=== PATIENT | female | born 1970 | race Hispanic/Latino ===

== ENCOUNTER 2024-06-22 10:12 | Inpatient (IN) | payer SELFPAY ==
[2024-06-22 20:08] LABS: Hematocrit 19.8 % (34.9-44.5); Hemoglobin 5.8 g/dL (12.0-15.5); Mean Corpuscular HGB CONC 29.3 g/dL (32.0-36.0); Mean Corpuscular Hemoglobin 26.1 pg (27.0-33.0); Mean Corpuscular Volume 89.2 fL (81.6-98.3); Mean Platelet Volume 11.4 fL (7.4-10.4); Platelet Count 223 10x3/uL (150-450); Red Blood Cell (RBC) Count 2.22 10x6/uL (3.90-5.03); White Blood Cell (WBC) Count 7.65 10x3/uL (3.5-10.5)
[2024-06-22 20:09] LABS: #Basophils 0.05 10x3/uL (0.0-0.2); #Eosinophils 0.29 10x3/uL (0.0-0.5); #Monocytes 0.56 10x3/uL (0.0-1.1); #Neutrophils 4.05 10x3/uL (1.5-8.4); %Basophils 0.7 % (0.0-2.0); %Eosinophils 3.8 % (0.0-6.0); %Monocytes 7.3 % (0.0-10.0); %Neutrophils 52.9 % (40.0-75.0)
[2024-06-22 20:38] VITALS: BMI 32.8
[2024-06-23] MEDS: Furosemide 20 MG (2 mL) VIAL SLOW IVP SCH (04:05)
[2024-06-23 09:19] LABS: #Basophils 0.05 10x3/uL (0.0-0.2); #Eosinophils 0.31 10x3/uL (0.0-0.5); #Monocytes 0.61 10x3/uL (0.0-1.1); #Neutrophils 3.87 10x3/uL (1.5-8.4); %Basophils 0.8 % (0.0-2.0); %Eosinophils 4.7 % (0.0-6.0); %Lymphocytes 26.8 % (18.0-47.0); %Monocytes 9.2 % (0.0-10.0); %Neutrophils 58.2 % (40.0-75.0); Hematocrit 29.1 % (34.9-44.5); Hemoglobin 9.1 g/dL (12.0-15.5); Mean Corpuscular HGB CONC 31.3 g/dL (32.0-36.0); Mean Corpuscular Hemoglobin 27.2 pg (27.0-33.0); Mean Corpuscular Volume 86.9 fL (81.6-98.3); Mean Platelet Volume 11.5 fL (7.4-10.4); Platelet Count 194 10x3/uL (150-450); RBC Distribution Width 19.7 % (11.5-14.5); Red Blood Cell (RBC) Count 3.35 10x6/uL (3.90-5.03); White Blood Cell (WBC) Count 6.64 10x3/uL (3.5-10.5)
[2024-06-23 09:30] LABS: INR-International Normal Ratio 0.9; PTT 22.7 sec (22.0-33.0); Prothrombin Time 10.3 sec (9.5-12.1)
[2024-06-23 14:46] LABS: Anion Gap 10 mmol/L (10-20); BUN (Urea Nitrogen) 12 mg/dL (9.8-20.1); Calc. Creatinine Clearance 126 mL/min (70-130); Calcium 8.9 mg/dL (7.8-10.44); Carbon Dioxide 25 mmol/L (22-29); Chloride 105 mmol/L (98-107); Estimated GFR 88; Glucose 87 mg/dL (70-105); Potassium 3.9 mmol/L (3.5-5.1); Sodium 136 mmol/L (136-145)
[2024-06-23] MEDS ORDERED: Bupivacaine HCl 0.5%/Epinephrine 1:200,000/PF 30 ml Vial ONE (15:19)
[2024-06-23] MEDS ORDERED: Methylene Blue 50 MG/10 ML AMPUL ONE (15:19)
[2024-06-23] MEDS ORDERED: Fentanyl 100 MCG/2 ML VIAL ONE ×2 (15:47→18:40)
[2024-06-23] MEDS ORDERED: PROPOFOL 40 ML ONE (15:47)
[2024-06-23] MEDS ORDERED: ePHEDrine Sulfate 50 MG/10 ML VIAL ONE (16:45)
[2024-06-23] MEDS ORDERED: Ondansetron PF 4 MG/2 ML Vial IVP PRN (18:01)
[2024-06-23] MEDS ORDERED: Morphine 2 MG/ML VIAL SLOW IVP PRN (18:01)
[2024-06-23] MEDS ORDERED: Ketorolac Tromethamine 30 MG (1 mL) VIAL ONE (18:02)
[2024-06-23] MEDS: HYDROcodone/Acetaminophen 5/325 mg Tablet PO SCH (21:44)
[2024-06-23] MEDS: Sodium Chloride 0.9% 1,000 ML IV SCH (21:55)
[2024-06-24] MEDS: Ketorolac Tromethamine 30 MG (1 mL) VIAL IVP SCH (00:41)
[2024-06-24 05:30] LABS: Hematocrit 27.6 % (34.9-44.5); Hemoglobin 8.5 g/dL (12.0-15.5); Mean Corpuscular HGB CONC 30.8 g/dL (32.0-36.0); Mean Corpuscular Hemoglobin 26.9 pg (27.0-33.0); Mean Corpuscular Volume 87.3 fL (81.6-98.3); Mean Platelet Volume 11.5 fL (7.4-10.4); Platelet Count 173 10x3/uL (150-450); RBC Distribution Width 19.6 % (11.5-14.5); Red Blood Cell (RBC) Count 3.16 10x6/uL (3.90-5.03); White Blood Cell (WBC) Count 10.61 10x3/uL (3.5-10.5)
[2024-06-24] MEDS: Simethicone Chewable 80 MG TAB PO PRN (22:58)
[2024-06-25 08:01] VITALS: BP 131/71; TEMP 98
== END 2024-06-25 10:10 | disposition home or self-care (01) | DRG 743 ==
LOC: CSHPP 18:38
PROVIDERS: ADMIT Obstetrics & Gynecology; ATTEND Obstetrics & Gynecology
PROC: 0UT94ZZ Resection of Uterus, Percutaneous Endoscopic Approach (ICD-10-PCS; principal; 2024-06-23)
PROC: 0UT74ZZ Resection of Bilateral Fallopian Tubes, Percutaneous Endoscopic Approach (ICD-10-PCS; 2024-06-23)
PROC: 0UT24ZZ Resection of Bilateral Ovaries, Percutaneous Endoscopic Approach (ICD-10-PCS; 2024-06-23)
PROC: 8E0W4CZ Robotic Assisted Procedure of Trunk Region, Percutaneous Endoscopic Approach (ICD-10-PCS; 2024-06-23)
PROC: 30233K1 Transfusion of Nonautologous Frozen Plasma into Peripheral Vein, Percutaneous Approach (ICD-10-PCS; 2024-06-23)
PROC: 30233N1 Transfusion of Nonautologous Red Blood Cells into Peripheral Vein, Percutaneous Approach (ICD-10-PCS; 2024-06-23)
DX: D25.9 Leiomyoma of uterus, unspecified (principal); N83.202 Unspecified ovarian cyst, left side; N92.0 Excessive and frequent menstruation with regular cycle; N94.6 Dysmenorrhea, unspecified; D64.9 Anemia, unspecified; N73.6 Female pelvic peritoneal adhesions (postinfective); Z79.899 Other long term (current) drug therapy
CPT/HCPCS: 36415; 36430; 80048; 85025; 85027; 85610; 85730; 86850; 86900; 86901; 88307; J1885; J1940; J2704; J3010; J7030; P9016; P9059; S2900